=== PATIENT | female | born 1995 | race Two or more races ===

== ENCOUNTER 2017-08-28 12:40 | Inpatient (IN) | payer MEDICAID ==
[2017-08-28] MEDS ORDERED: RINGERS SOLUTION,LACTATED 1,000 ML IV ONE (12:53)
[2017-08-28] MEDS ORDERED: OXYTOCIN/NORMAL SALINE 20 UNIT/1,000 ML RTUINJ IV PRN (12:56)
[2017-08-28 13:26] LABS: APPEARANCE,URINE CLEAR; BILIRUBIN,URINE NEGATIVE (NEGATIVE); GLUCOSE, URINE NEGATIVE (NEGATIVE); KETONES,URINE NEGATIVE (NEGATIVE); LEUKOCYTE ESTERASE,URINE NEGATIVE (NEGATIVE); NITRITE,URINE NEGATIVE (NEGATIVE); PROTEIN,URINE NEGATIVE (NEGATIVE); URINE SPECIFIC GRAVITY 1.003; UROBILINOGEN,URINE NEGATIVE mg/dL (<2.0)
[2017-08-28 13:42] LABS: URINE BARBITURATES SCREEN NEGATIVE; URINE METHADONE SCREEN NEGATIVE; URINE OPIATES LOW NEGATIVE; URINE PHENCYCLIDINE SCREEN NEGATIVE
[2017-08-28] MEDS ORDERED: OXYTOCIN/NORMAL SALINE 20 UNIT/1,000 ML RTUINJ ONE (14:06)
[2017-08-28 14:59] LABS: ABSOLUTE EOSINOPHILS # (AUTO) 0.1 10^3/uL (0.0-0.6); ABSOLUTE LYMPHOCYTES (AUTO) 1.9 10^3/uL (0.5-4.7); ABSOLUTE MONOCYTES (AUTO) 0.8 10^3/uL (0.1-1.4); BASOPHILS % (AUTO) 0.4 % (0-2); EOSINOPHILS % (AUTO) 0.7 % (0-6); HEMATOCRIT 35.6 % (36.0-47.0); HEMOGLOBIN 12.4 g/dL (12.0-15.5); HGB HCT DIFFERENCE 1.6; LYMPHOCYTES % (AUTO) 19.1 % (13-45); MEAN CORPUSCULAR HEMOGLOBIN 28.8 pg (27.0-33.4); MEAN CORPUSCULAR HGB CONC 34.9 g/dL (32.0-36.0); MEAN CORPUSCULAR VOLUME 83 fl (80-97); RED BLOOD COUNT 4.31 10^6/uL (3.72-5.28); SEGMENTED NEUTROPHILS % (AUTO) 71.8 % (42-78); WHITE BLOOD COUNT 9.8 10^3/uL (4.0-10.5)
[2017-08-28 15:13] LABS: ALANINE AMINOTRANSFERASE 25 U/L (9-52); ALBUMIN 3.3 g/dL (3.5-5.0); ALKALINE PHOSPHATASE 161 U/L (38-126); ANION GAP 12 (5-19); ASPARTATE AMINO TRANSFERASE 19 U/L (14-36); BILIRUBIN,DIRECT 0.2 mg/dL (0.0-0.4); BILIRUBIN,TOTAL 0.2 mg/dL (0.2-1.3); BLOOD UREA NITROGEN 9 mg/dL (7-20); CALCIUM 8.9 mg/dL (8.4-10.2); CARBON DIOXIDE 19 mmol/L (22-30); CHLORIDE 109 mmol/L (98-107); CREATININE RESULT 0.58 mg/dL (0.52-1.25); GLUCOSE 72 mg/dL (75-110); LDH 431 U/L (313-618); SODIUM 140.3 mmol/L (137-145); URIC ACID 7.4 mg/dL (2.5-6.2)
[2017-08-28] MEDS ORDERED: MISOPROSTOL 0.1 MG TABLET PV ONE ×2 (19:17→23:24)
[2017-08-28] MEDS ORDERED: MISOPROSTOL 0.1 MG TABLET PO ONE ×2 (19:17→23:24)
[2017-08-28] MEDS ORDERED: MISOPROSTOL 0.1 MG TABLET ONE (20:06)
[2017-08-28] MEDS ORDERED: RINGERS SOLUTION,LACTATED 1,000 ML IV PRN (20:37)
[2017-08-29] MEDS ORDERED: MISOPROSTOL 0.1 MG TABLET ONE ×2 (02:07→06:49)
[2017-08-29] MEDS ORDERED: MISOPROSTOL 0.1 MG TABLET PO ONE (06:46)
[2017-08-29] MEDS ORDERED: MISOPROSTOL 0.1 MG TABLET PV ONE (06:47)
[2017-08-29] MEDS ORDERED: OXYTOCIN/NORMAL SALINE 20 UNIT/1,000 ML RTUINJ ONE ×2 (09:02→20:28)
[2017-08-29] MEDS ORDERED: PROMETHAZINE HCL INJ 25 MG/1 ML VIAL ONE (15:16)
[2017-08-29] MEDS ORDERED: NALBUPHINE HCL INJ 10 MG/1 ML AMPULE ONE (15:16)
[2017-08-29] MEDS ORDERED: TERBUTALINE SULFATE INJ/PF 1 MG/1 ML SDV ONE (16:14)
--- NOTE | 2017-08-29 18:53 | L&D Progress Notes ---
PROGRESS NOTES Datetime Report Generated by CPN: 08/29/2017 18:53 PROGRESS NOTE Impression: Normal Progression of Labor Procedures: Artificial ROM; Intrauterine Pressure Catheter; Scalp Electrode Plan: Continue Present Management Comment: Retrospective note from [facility] @1306 and check @1604 Initially at [facility], noted meconium staining and CAT1 Status CVX 3/75/-2; Further exam at 1604-Internal monitors placed for amnioinfusion and FSE 2nd to what appeared to be deep variables occuring in an early manner. Pitocin reached as high as 6miu/min and turned off 2nd to deep variables, terbutaline 0.25mg subq was eventually given to give fetus a rest. VAGINAL EXAM Dilatation: 1 Effacement: 80 Station: 1 MEMBRANES Membranes: Ruptured Membranes: Intact Amniotic Fluid Color: Meconium, Light FETUS A FHR - Baseline: 130s Variability: Moderate 6-25bpm Accelerations: 10X10 Decelerations: Early SIGNATURE SIGNATURE: [id number] Signature: with User ID: [email or web address]
[2017-08-29] MEDS ORDERED: OXYTOCIN/NORMAL SALINE 0 UNIT/0 ML RTUINJ ONE (19:20)
[2017-08-29] MEDS ORDERED: LIDOCAINE 1% INJ-PF (10 MG/ML) 30 ML SDV ONE (20:28)
[2017-08-29] MEDS ORDERED: MISOPROSTOL 0.2 MG TABLET ONE ×2 (20:28)
[2017-08-29] MEDS ORDERED: FENTANYL CITRATE INJ/PF 100 MCG/2 ML AMPUL ONE (22:27)
[2017-08-29] MEDS ORDERED: EPHEDRINE SULFATE INJ 50 MG/1 ML AMPULE ONE (22:27)
[2017-08-29] MEDS ORDERED: BUPIVACAINE HCL 0.25 % INJ/PF (2.5 MG/1 ML) 30 ML VIAL ONE (22:28)
[2017-08-29] MEDS ORDERED: FENTANYL/BUPIVACAINE/NS/PF 0 MCG/0 ML RTUINJ EPI ONE (22:28)
[2017-08-29] MEDS ORDERED: PHENYLEPHRINE HCL INJ/PF 10 MG/1 ML SDV ONE (22:28)
[2017-08-29 23:01] LABS: HEMATOCRIT 41.6 % (36.0-47.0); HEMOGLOBIN 14.3 g/dL (12.0-15.5); HGB HCT DIFFERENCE 1.3; MEAN CORPUSCULAR HEMOGLOBIN 28.7 pg (27.0-33.4); MEAN CORPUSCULAR HGB CONC 34.4 g/dL (32.0-36.0); MEAN CORPUSCULAR VOLUME 83 fl (80-97); RED CELL DISTRIBUTION WIDTH 14.1 % (11.5-14.0)
[2017-08-29 23:04] LABS: WHITE BLOOD COUNT 23.7 10^3/uL (4.0-10.5)
[2017-08-29 23:23] LABS: BAND NEUTROPHILS % (MANUAL) 5 % (3-5); BASOPHILS % (MANUAL) 0 % (0-2); EOSINOPHILS % (MANUAL) 0 % (0-6); LYMPHOCYTES % (MANUAL) 5 % (13-45); TOTAL CELLS COUNTED 100
[2017-08-29 23:25] LABS: ANISOCYTOSIS SLIGHT; PLATELET CLUMPS PRESENT; SCHISTOCYTES SLIGHT; TOXIC GRANULATION 1+
[2017-08-30] MEDS ORDERED: OXYTOCIN 10 UNIT/ML VIAL ONE (00:05)
[2017-08-30] MEDS ORDERED: MEASLES,MUMPS&RUBELLA VACC/PF 0.5 ML VIAL SUBCUT PRN (00:54)
[2017-08-30] MEDS ORDERED: METHYLERGONOVINE MALEATE INJ/PF 0.2 MG/1 ML AMPULE IM PRN (00:54)
[2017-08-30] MEDS ORDERED: OXYTOCIN/NORMAL SALINE 20 UNIT/1,000 ML RTUINJ IV PRN (00:54)
[2017-08-30] MEDS ORDERED: DIBUCAINE 1% OINTMENT 28 GM TP PRN (00:54)
[2017-08-30] MEDS ORDERED: DIPH/PERTUSS(ACELL)/TETANUS VAC/PF 0.5 ML SYR (>=10YO) IM PRN (00:54)
[2017-08-30] MEDS ORDERED: ACETAMINOPHEN WITH CODEINE #3 TABLET PO PRN ×2 (00:54)
[2017-08-30] MEDS ORDERED: CARBOPROST TROMETHAMINE INJ 250 MCG/1 ML AMPULE IM PRN (00:54)
[2017-08-30] MEDS ORDERED: BENZOCAINE/MENTHOL AEROSOL SPRAY 56 ML TOP PRN (00:54)
[2017-08-30] MEDS ORDERED: ZOLPIDEM TARTRATE 5 MG TABLET PO PRN (00:54)
--- NOTE | 2017-08-30 02:02 | Delivery Summary ---
Del Sum A-C Datetime Report Generated by CPN: 08/30/2017 02:01 DELIVERY PERSONNEL DELIVERY PERSONNEL: [id number] Delivery Doctor:: Bernadine Jacques MD Labor and Delivery Nurse:: Juju No RNreal estate instructor Nurse:: Sandra Puri RN Nursery Nurse:: Beatrice Garcia RN Blood Bank Attendant/EXPORT SPECIALIST: Dasia Garcia Additional Personnel: : Claudine Shaffer RN MATERNAL INFORMATION Delivery Anesthesia: None Medications After Delivery: Pitocin 10 Units IM Maternal Complications: Prolonged Second Stage > 2 Hrs; Other Other Maternal Complications: Oligohydramnios Provider Comments: [place] was limp at the time of delivery and taken directly over to baby warmer where labor nurse initiated NRP protocol. LABOR SUMMARY EDC: 09/04/2017 00:00 No. Babies in Womb: 1 Attempted: No Labor Anesthesia: None LABOR INFORMATION Reason for Induction: Oligohydramnios Onset of Labor: 08/29/2017 13:06 Complete Dilatation: 08/29/2017 20:45 Cervical Ripening Agents: Cytotec @ Oxytocin: Induction Group B Beta Strep: negative Antibiotics # of Doses: 0 Steroids Given: None Reason Steroids Not Administered: Not Applicable MEMBRANES Membranes Rupture Method: Artificial Rupture of Membranes: 08/29/2017 13:06 Length of Rupture (hr): 10.93 Amniotic Fluid Color: Light Meconium Amniotic Fluid Amount: Scant Amniotic Fluid Odor: Normal STAGES OF LABOR Stage 1 hr: 7 Stage 1 min: 39 Stage 2 hr: 3 Stage 2 min: 17 Stage 3 hr: 0 Stage 3 min: 9 Total Time in Labor hr: 11 Total Time in Labor min: 5 VAGINAL DELIVERY Episiotomy: None Laceration #1: Vaginal; Sulcus Laceration Extension #1: N/A Laceration Repair: Yes Laceration Repair Note: Left vaginal sidewall laceration repaired with 3.0 vicryl suture in a running locked fashion Sponge Count Correct: N/A Sharps Count Correct: N/A CSECTION DELIVERY Primary Indication: N/A Secondary Indication: N/A CSection Incidence: N/A Labor: N/A Elective: N/A CSection Incision: N/A BABY A INFORMATION Infant Delivery Date/Time: 08/30/2017 00:02 Method of Delivery: Vaginal Born in Route : No : N/A Forceps: N/A Vacuum Extraction: N/A Shoulder Dystocia : No PRESENTATION/POSITION BABY A Presentation: Cephalic Cephalic Presentation: Vertex Vertex Position: Left Occipital Posterior Breech Presentation: N/A PLACENTA INFORMATION BABY A Placenta Delivery Time : 08/30/2017 00:11 Placenta Method of Delivery: Spontaneous Placenta Status: Delivered SCORES BABY A Heart Rate 1 min: >100 bpm Resp Effort 1 min: Good Cry Reflex Irritability 1 min: Cough or Sneeze or Pulls Away Muscle Tone 1 min: Active Motion Color 1 min: Blue/Pale Resuscitation Effort 1 min: Tactile Stimulation SCORE 1 MIN: 8 Heart Rate 5 min: >100 bpm Resp Effort 5 min: Good Cry Reflex Irritability 5 min: Cough or Sneeze or Pulls Away Muscle Tone 5 min: Active Motion Color 5 min: Body [place], Extremities Blue Resuscitation Effort 5 min: Tactile Stimulation SCORE 5 MIN: 9 INFANT INFORMATION BABY A Gestational Age at Delivery: 39.1 Gestational Status: Full Term- 39- 40.6 Weeks Outcome : Liveborn Condition : Stable Infant Sex: Male IDENTIFICATION BABY A Verification Date/Time: 08/30/2017 00:10 ID Band Number: [id number] Mother's Name Verified: Yes Infant RN Verifying : Ganga BrandonDAREK chen Additional Verifying Personnel: Sukhdev Rojas RN WEIGHT/LENGTH BABY A Birthweight (gm): 2490 Infant Weight (lb): 5 Infant Weight (oz): 8 Infant Length (in): 19.50 Length (cm): 49.53 CORD INFORMATION BABY A No. Cord Vessels: 3 Nuchal Cord : N/A Cord Blood Taken: Yes-For Storage (Mom's Blood type +) Infant Suction: Mouth; Nose ASSESSMENT BABY A Infant Complications: Multiple Late Decels; Multiple Variable Decels; Oligohydramnios Physical Findings at Delivery: Caput Succedaneum; Puncture Wound from Scalp Electrode Physical Findings- Other: See full nursery assessment Infant Respirations: Appears Normal Skin to Skin: Yes Skin to Skin Time (min): 15 Apprentice Photographer/ALS Called : No Care By: Sunny Garcia Transferred To: Remains with Mother BABY B INFORMATION : N/A SIGNATURES Signature: with User ID: [email or web address]
--- NOTE | 2017-08-30 03:59 | Admission Physical ---
Datetime Report Generated by CPN: 08/30/2017 03:59 CURRENT ADMISSION Hx Assessment: The History has been Reviewed and is Current Chief Complaint: Scheduled Induction of Labor Indication for Induction: Oligohydramnios Indication for Induction: Term, Intrauterine ; Intact Membranes; Induction of Labor Admit Plan: Admit to Unit; Initiate Labor Induction Protocol ALLERGIES Medication Allergies: No Medication Allergies: No Known Allergies (08/28/2017) Latex: No Latex Allergies OBSTETRICAL HISTORY EDC: 09/04/2017 00:00 : 1 Para: 0 Term: 0 : 0 SAB: 0 IAB: 0 Ectopic: 0 Livin Cesareans: 0 VBACs: 0 Multiple Births: 0 Gestational Diabetes: No Rh Sensitization: No Incompetent Cervix: No ITM: No Infertility: No ART Treatment: No Uterine Anomaly: No IUGR: No Hx Previous C/S: No Macrosomia: No Hx Loss/Stillborn: No PIH: No Hx : No Placenta Previa/Abruption: No Depression/PP Depression: No PTL/PROM: No Post Hemorrhage: No Current Procedures: Ultrasound; NST Obstetrical History Comments: G1: current (oligo) SEE RECORDS Alcohol: No Marijuana : No Cocaine: No Other Illicit Drugs: No Cigarettes: Never Smoker. 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 Surgery: No Heart Disease: No Hosp/Surgery: No Autoimmune Disorder: No Anesthetic Complications: No Kidney Disease: No Abnormal Pap Smear: No Neuro/Epilepsy: No Psychiatric Disorders: No Other Medical Diseases: No Hepatitis/Liver Disease: No Significant Family History: No Varicosities/Phlebitis: No Trauma/Violence : No Thyroid Dysfunction: No INFECTIOUS HISTORY Gonorrhea: No Genital Herpes: No Chlamydia: No Tuberculosis: No Syphilis: No Hepatitis: No HIV/AIDS Exposure: No Rash or Viral Illness: No HPV: No Infectious History Comments: denies PHYSICAL EXAM General: Normal HEENT: Normal Neurologic: Normal Thyroid: Normal Heart: Normal Lungs: Normal Breast: Deferred Back: Normal Abdomen: Normal Genitourinary Exam: Normal Extremities: Normal DTRs: Normal Pelvic Type: Adequate Physical Exam Comments: GBS neg VAGINAL EXAM Dilatation: 1 Effacement: 80 Station: 1 MEMBRANES Membranes: Ruptured Membranes: Intact Amniotic Fluid Color: Meconium, Light FETUS A EGA: 39.0 Monitoring: External US FHR- Baseline: 150 Variability: Moderate 6-25bpm Accelerations: 15X15 Decelerations: None Admit Comment: Admitted to L_D for IOL for Oligo and labile BP's, add Pre-E labs GBS neg Discussed POC with hsb and pt and will proceed with IOL, aware she has low fluid and need to start labor, 39 weeks PLANS FOR LABOR AND DELIVERY Labor and Delivery: None Pain Management: None Feeding Preference: Breast Benefit of Breast Feed Discussed: Yes Circumcision: No INFORMED CONSENT Assignment: Chantel Lan MD Signature: with User ID: [email or web address] : with User ID: [email or web address]
[2017-08-30 06:33] LABS: HEMATOCRIT 33.9 % (36.0-47.0); HGB HCT DIFFERENCE 0.9; MEAN CORPUSCULAR HGB CONC 34.1 g/dL (32.0-36.0); MEAN CORPUSCULAR VOLUME 82 fl (80-97); RED BLOOD COUNT 4.14 10^6/uL (3.72-5.28)
[2017-08-30 06:44] LABS: HEMOGLOBIN 11.6 g/dL (12.0-15.5)
[2017-08-30] MEDS: IBUPROFEN 800 MG TABLET PO SCH ×3 (06:47→21:22)
--- NOTE | 2017-08-30 09:56 | PDOC PROGRESS REPORT ---
Subjective-OB Subjective: Post Delivery Day: 22 year old. Denies any needs at this time Doing well, hsb at BS, no c/o, having trouble with baby latching on, scant bleeding Physical Exam (OB) Vital Signs: Temp Pulse Resp BP Pulse Ox 98.5 F 114 H 14 120/62 98 08/30/17 07:57 08/30/17 07:57 08/30/17 07:57 08/30/17 07:57 08/30/17 07:57 Intake & Output 08/29/17 08/30/17 08/31/17 06:59 06:59 06:59 Weight 74.35 kg - Lochia Lochia Amount: Small 10-25 ml Lochia Color: Rubra/Red - Abdomen Description: Soft, Round Hernia Present: No Fundal Description: Firm, Midline Fundal Height: u/u - u/2 Objective-Diagnostic Laboratory: 08/30/17 06:00 08/28/17 14:35 08/29/17 08/30/17 22:45 06:00 WBC 23.7 H D 23.0 H RBC 5.00 4.14 Hgb 14.3 11.6 L D Hct 41.6 33.9 L MCV 83 82 MCH 28.7 28.0 MCHC 34.4 34.1 RDW 14.1 H 14.0 Plt Count 287 208 Seg Neutrophils % Not Reportable Lymphocytes % Not Reportable Monocytes % Not Reportable Eosinophils % Not Reportable Basophils % Not Reportable Absolute Neutrophils Not Reportable Absolute Lymphocytes Not Reportable Absolute Monocytes Not Reportable Absolute Eosinophils Not Reportable Absolute Basophils Not Reportable Assessment and Plan(PN) - Assessment and Plan (1) Oligohydramnios delivered Is this a current diagnosis for this admission?: Yes (2) Vaginal delivery Is this a current diagnosis for this admission?: Yes - Time Spent with Patient Time with patient: Less than 15 minutes Medications reviewed and adjusted accordingly: Yes - Disposition Anticipated Discharge: Home Within: within 48 hours
[2017-08-30] MEDS: SENNOSIDES/DOCUSATE 8.6-50 MG 1 EACH TABLET PO SCH (11:01)
[2017-08-30] MEDS: DOCUSATE SODIUM 100 MG CAPSULE PO SCH ×2 (11:01→17:17)
[2017-08-30] MEDS: PRENATAL VITAMIN W-O CA NO5/FE FUMARATE/FA CAPSULE PO SCH (11:02)
[2017-08-30] MEDS: FERROUS SULFATE 325 MG TABLET PO SCH ×2 (11:02→17:17)
[2017-08-31] MEDS: IBUPROFEN 800 MG TABLET PO SCH ×3 (05:42→21:33)
[2017-08-31 07:06] LABS: HEMATOCRIT 30.4 % (36.0-47.0); HEMOGLOBIN 10.4 g/dL (12.0-15.5); HGB HCT DIFFERENCE 0.8; MEAN CORPUSCULAR HEMOGLOBIN 28.4 pg (27.0-33.4); MEAN CORPUSCULAR HGB CONC 34.1 g/dL (32.0-36.0); MEAN CORPUSCULAR VOLUME 83 fl (80-97); RED BLOOD COUNT 3.66 10^6/uL (3.72-5.28); RED CELL DISTRIBUTION WIDTH 14.1 % (11.5-14.0)
--- NOTE | 2017-08-31 08:52 | PDOC PROGRESS REPORT ---
Subjective-OB Subjective: Post Delivery Day: 22 year old. Denies any needs at this time Doing well, OOB in room and halls. still having problems with breast feeding and concerned mild has not come in, eating well, voiding, scant lochia Physical Exam (OB) Vital Signs: Temp Pulse Resp BP Pulse Ox 98.8 F 101 H 20 119/67 100 08/30/17 20:29 08/30/17 20:29 08/30/17 20:29 08/30/17 20:29 08/30/17 20:29 - PIH/Pre-Eclampsia Clonus: Negative - Lochia Lochia Amount: Small 10-25 ml Lochia Color: Rubra/Red - Abdomen Description: Soft, Flat Hernia Present: No Fundal Description: Firm, Midline Fundal Height: u/u - u/2 Objective-Diagnostic Laboratory: 08/31/17 06:11 08/28/17 14:35 08/31/17 06:11 WBC 14.0 H RBC 3.66 L Hgb 10.4 L Hct 30.4 L MCV 83 MCH 28.4 MCHC 34.1 RDW 14.1 H Plt Count 178 Assessment and Plan(PN) - Assessment and Plan (1) Oligohydramnios delivered Is this a current diagnosis for this admission?: Yes (2) Vaginal delivery Is this a current diagnosis for this admission?: Yes - Time Spent with Patient Time with patient: Less than 15 minutes Medications reviewed and adjusted accordingly: Yes - Disposition Anticipated Discharge: Home Within: within 24 hours
[2017-08-31] MEDS: SENNOSIDES/DOCUSATE 8.6-50 MG 1 EACH TABLET PO SCH (09:56)
[2017-08-31] MEDS: DOCUSATE SODIUM 100 MG CAPSULE PO SCH ×2 (09:56→18:14)
[2017-08-31] MEDS: PRENATAL VITAMIN W-O CA NO5/FE FUMARATE/FA CAPSULE PO SCH (09:56)
[2017-08-31] MEDS: FERROUS SULFATE 325 MG TABLET PO SCH ×2 (09:56→18:14)
[2017-08-31] MEDS ORDERED: INFLUENZA ADLT QUAD (36MOS+) 2017-18 VAC 0.5 ML SYR IM PRN (16:50)
[2017-09-01] MEDS: IBUPROFEN 800 MG TABLET PO SCH ×2 (05:16→13:42)
[2017-09-01 09:47] VITALS: BP 126/81
--- NOTE | 2017-09-01 10:16 | PDOC DISCHARGE SUMMARY ---
Final Diagnosis Discharge Date: 09/01/17 - Final Diagnosis (1) Oligohydramnios delivered Is this a current diagnosis for this admission?: Yes (2) Vaginal delivery Is this a current diagnosis for this admission?: Yes Discharge Data - Discharge Medication Home Medications: No122/Iron/Folic Acid [ Multi Tablet] 1 tab PO DAILY 08/28/17 Reason(s) for Admission: Induction of Labor Procedures: NST, Ultrasound Intrapartum Procedure(s): Spontaneous Vaginal Delivery Complication(s): Laceration-Vaginal, Other Laceration-Degree: 2nd - Diagnosis Test Laboratory: Temp Pulse Resp BP Pulse Ox 97.6 F 72 15 126/81 H 99 09/01/17 07:30 09/01/17 07:30 09/01/17 07:30 09/01/17 07:30 09/01/17 07:30 08/28/17 08/28/17 08/29/17 13:09 14:35 22:45 RBC 4.31 5.00 Hgb 12.4 14.3 Hct 35.6 L 41.6 Urine Opiates Screen NEGATIVE 08/30/17 08/31/17 06:00 06:11 RBC 4.14 3.66 L Hgb 11.6 L D 10.4 L Hct 33.9 L 30.4 L Urine Opiates Screen - Discharge information/Instructions Discharge Activity: Activity As Tolerated Discharge Diet: Regular Disposition: HOME, SELF-CARE Follow up with: [facility] in: 4
[2017-09-01] MEDS: SENNOSIDES/DOCUSATE 8.6-50 MG 1 EACH TABLET PO SCH (10:44)
[2017-09-01] MEDS: DOCUSATE SODIUM 100 MG CAPSULE PO SCH (10:44)
[2017-09-01] MEDS: PRENATAL VITAMIN W-O CA NO5/FE FUMARATE/FA CAPSULE PO SCH (10:44)
[2017-09-01] MEDS: FERROUS SULFATE 325 MG TABLET PO SCH (10:44)
== END 2017-09-01 15:15 | disposition home or self-care (01) | DRG 775 ==
LOC: LR 12:40 → 2S 08-30 03:00
PROVIDERS: ADMIT Obstetrics & Gynecology; ATTEND Obstetrics & Gynecology
PROC: 10E0XZZ Delivery of Products of Conception, External Approach (ICD-10-PCS; principal; 2017-08-30)
PROC: 0UQGXZZ Repair Vagina, External Approach (ICD-10-PCS; 2017-08-30)
PROC: 3E0234Z Introduction of Serum, Toxoid and Vaccine into Muscle, Percutaneous Approach (ICD-10-PCS; 2017-09-01)
DX: O41.03X0 Oligohydramnios, third trimester, not applicable or unspecified (principal); O71.4 Obstetric high vaginal laceration alone; O63.1 Prolonged second stage (of labor); O76 Abnormality in fetal heart rate and rhythm complicating labor and delivery; Z3A.39 39 weeks gestation of pregnancy; Z37.0 Single live birth; Z23 Encounter for immunization
CPT/HCPCS: 36415; 80053; 80307; 81005; 83615; 84550; 85025; 85027; 86592; 86850; 86900; 86901; 90686; J2300; J2370; J2550; J2590; J3010; J3105; J3490